=== PATIENT | female | born 1950 | race Caucasian/White ===

== ENCOUNTER 2020-03-19 09:15 | Outpatient (CLI) | payer MEDICARE, SELFPAY ==
--- NOTE | 2020-03-19 | ECHO_ITS ---
Patient Info Name: Chrissy Jones Age: 69 years : 1950 Gender: Female Ht: 63 in Wt: 230 lbs BSA: 2.21 m2 HR: 78 bpm BP: 207 / 86 mmHg Heart Rhythm: Sinus Rhythm Technical Quality: Good Exam Date: 03/19/2020 9:52 AM Exam Location: [facility] Pul[facility] Patient Status: Outpatient Admit Date: 03/19/2020 Staff Ordering Physician: LeninTor MD Senior Analyst Developer: Marlene Lainez RDCS Attending Provider: ZackTor MD Exam Type: CA echo doppler color flow Study Info Indications - heaven Complete two-dimensional, color flow and Doppler transthoracic echocardiogram is performed. Summary 1. Complete two-dimensional, color flow and Doppler transthoracic echocardiogram is performed. 2. Left ventricular chamber size, and systolic are normal with no regional wall motion abnormalities with an estimated ejection fraction of 65-70%. Borderline LVH. Grade 2 diastolic dysfunction is present. 3. Left atrial chamber dimension is mildly enlarged. 4. The mitral valve has calcified annulus, with trace mitral regurgitation. 5. Normal estimated pulmonary pressure. 6. Normal sinus rhythm. Left Ventricle Left ventricular chamber dimension is normal. Left ventricular systolic function is normal, estimated at 65-70%. There is no increased left ventricular wall thickness. Left ventricular septal wall motion is normal. The left ventricular diastolic function is grade II diastolic dysfunction. Left ventricular chamber size, and systolic are normal with no regional wall motion abnormalities with an estimated ejection fraction of 65-70%. Borderline LVH. Grade 2 diastolic dysfunction is present. Right Ventricle Right ventricular chamber dimension is normal. Right ventricular systolic function is normal. Left Atria Left atrial chamber dimension is mildly enlarged. Right Atria Right atrial chamber dimension is normal. Aortic Valve The aortic valve is trileaflet. There is no aortic valve sclerosis. There is no aortic valve stenosis. There is no aortic valve regurgitation. Pulmonic Valve The pulmonic valve is normal. There is no pulmonic valve stenosis. There is trace pulmonic regurgitation. Mitral Valve The mitral valve has calcified annulus, with trace mitral regurgitation. There is no mitral valve stenosis. There is trace mitral valve regurgitation. Tricuspid Valve The tricuspid valve leaflets are normal. There is no significant tricuspid valve stenosis. There is trace tricuspid valve regurgitation. No pulmonary hypertension, estimated pulmonary arterial systolic pressure is 32 mmHg. Pericardium/Pleural The pericardium appears normal. There is no pericardial effusion. Inferior Vena Cava Normal inferior vena cava with >50% collapse upon inspiration consistent with Empty right atrial pressure, 10 mmHg. Aorta The aortic root size at the sinus of Valsalva is normal. The prox ascending aorta size is normal. Left Ventricular Outflow Tract Name Value Normal LVOT 2D LVOT Diameter 2.0 cm LVOT Doppler LVOT Peak Gradient 4 mmHg LVOT Mean Gradient
== END 2020-03-19 09:16 | disposition home or self-care (01) ==
PROVIDERS: PCP Internal Medicine; Visit Provider Internal Medicine
DX: R60.0 Localized edema (principal); I34.0 Nonrheumatic mitral (valve) insufficiency
CPT/HCPCS: 93306

== ENCOUNTER → 2020-10-27 00:11 | Outpatient (CLI) | payer MEDICARE, SELFPAY ==
[2020-10-27 19:28] LABS: SARS-CoV-2 RNA PCR Negative
== END ==
PROVIDERS: PCP Internal Medicine; Visit Provider Internal Medicine Gastroenterology
DX: Z01.812 Encounter for preprocedural laboratory examination (principal); Z20.822 Contact with and (suspected) exposure to COVID-19
CPT/HCPCS: C9803; U0003; U0005

== ENCOUNTER 2020-10-30 01:26 | Day surgery (SDC) | payer MEDICARE, SELFPAY ==
[2020-10-20 13:48] VITALS: BMI 39.0
[2020-10-30 07:44] VITALS: BP 173/61; PULSE 74; RESP 18; TEMP 36.8; O2SAT 97; BMI 39.6
[2020-10-30] MEDS: SODIUM CHLORIDE 0.9% IV 500 ML 10 ML IV CONT (07:55)
[2020-10-30 07:58] LABS: Glucose Point of Care 272 (65-105)
--- NOTE | 2020-10-30 08:16 | WPDGICN ---
GI Consult Note Consult date/time: 10/30/20 08:16 HPI: Reason for visit is colonoscopy. This very pleasant lady sitting consultation request the primary physician. Impression: Screening and surveillance colonoscopy. The patient has a history of adenomatous colon polyps. HTN. HLD. DM. Obesity. Breast cancer. Status post mastectomy. Recommendation: Colonoscopy. History: This very pleasant lady is negative GI review systems. She has a history of colon polyps. She is here for colonoscopy. Physical examination: General: very pleasant patient in no acute distress. HEENT: Head was normocephalic sclerae is clear mouth without masses neck was supple. Heart: Rate rhythm regular without S3 or S4. Lungs: CTA. Abdomen: Soft with no guarding or rigidity. Bowel sounds were active. Neurologic: Cranial nerves 2 through 12 intact. No focal defects. No clonus. Musculoskeletal system: Revealed no joint tenderness or swelling no muscle atrophy. Extremities: Reveal no significant edema. Skin: Warm and dry with normal turgor. Mental status: intact. Patient is alert and oriented. Review of Systems Review of Systems: All systems reviewed & are unremarkable except as noted in HPI and below PMFSH Family History Family History (System 08/20/19 @ 14:01 by Slime Francis) Mother Hypertension Family history of diabetes mellitus in first degree relative Father Family history of coronary artery disease Patient's father is Social History Social History (System 08/20/19 @ 14:01 by Slime Francis) Smoking status: Never smoker Alcohol intake: current Substance use: never Substance use type: does not use Living arrangements: with family Gender identity (if verbalized by the patient): Female Sexual Orientation (if Verbalized by the Patient): Straight or Heterosexual Spiritual care concerns: No Meds Home Medications and Allergies Home Medications Medication Instructions Recorded Confirmed Type aspirin [Aspir-81] 81 mg PO DAILY 10/20/20 10/20/20 History atenolol [Tenormin] 25 mg PO DAILY 10/20/20 10/30/20 History atorvastatin 80 mg PO DAILY 10/20/20 10/20/20 History glimepiride [Amaryl] 2 mg PO BID 10/20/20 10/20/20 History insulin aspart U-100 [Novolog 16 unit SUBCUT TID 10/20/20 10/20/20 History Flexpen U-100 Insulin] insulin degludec [Tresiba 66 unit SUBCUT DAILY 10/20/20 10/20/20 History FlexTouch U-200] lisinopril 20 mg PO DAILY 10/20/20 10/20/20 History vxxmsiuqqcei-bjzkzhlv-lhswho 1 tablet PO DAILY 10/20/20 10/20/20 History [Centrum Silver] omega-3 fatty acids [Fish Oil] 1,000 mg PO DAILY 10/20/20 10/20/20 History Allergies Allergy/AdvReac Type Severity Reaction Status Date / Time clarithromycin Allergy Unknown Unknown Verified 10/30/20 07:43 Vital Signs Vital Signs - 24 hr 10/30/20 07:44 Temperature 36.8 C Pulse Rate 74 Respiratory Rate 18 Blood Pressure 173/61 H Pulse Oximetry 97
--- NOTE | 2020-10-30 08:46 | WPDANESEPPF ---
Anes - Initial Pre Proc Eval Procedure: Operation Date: 10/30/20 09:00 Proposed Procedures p Screening Colonoscopy - Hemant Macias DO Date/Time: 10/30/20 08:46 Surgeon: Hemant Macias DO Pre Op Diagnosis: neoplasm screening Patient Data Age: 69 Gender: F Height: 5 ft 3 in Weight: 101.5 kg Last Vital Signs Temp 98.3 F 10/30/20 07:44 Pulse 74 10/30/20 07:44 Resp 18 10/30/20 07:44 BP 173/61 H 10/30/20 07:44 Pulse Ox 97 10/30/20 07:44 Allergies Allergy/AdvReac Type Severity Reaction Status Date / Time clarithromycin Allergy Unknown Unknown Verified 10/30/20 07:43 Home Medications Medication Instructions Recorded Confirmed Type aspirin [Aspir-81] 81 mg PO DAILY 10/20/20 10/20/20 History atenolol [Tenormin] 25 mg PO DAILY 10/20/20 10/30/20 History atorvastatin 80 mg PO DAILY 10/20/20 10/20/20 History glimepiride [Amaryl] 2 mg PO BID 10/20/20 10/20/20 History insulin aspart U-100 [Novolog 16 unit SUBCUT TID 10/20/20 10/20/20 History Flexpen U-100 Insulin] insulin degludec [Tresiba 66 unit SUBCUT DAILY 10/20/20 10/20/20 History FlexTouch U-200] lisinopril 20 mg PO DAILY 10/20/20 10/20/20 History yrcvodlsoieu-qqpeitqd-dkixwx 1 tablet PO DAILY 10/20/20 10/20/20 History [Centrum Silver] omega-3 fatty acids [Fish Oil] 1,000 mg PO DAILY 10/20/20 10/20/20 History Laboratory Tests 10/30/20 07:50 POC Capillary Glucose 272 mg/dl H mg/dl (65-105) Patient hx anesthesia problems: none Family hx anesthesia problems: none PMFSH Past Medical History Medical History (Updated 10/30/20 @ 08:45 by Ramses Montgomery MD) COPD (chronic obstructive pulmonary disease) Diabetes Hypertension Family History Family History (System 08/20/19 @ 14:01 by Slime Francis) Mother Hypertension Family history of diabetes mellitus in first degree relative Father Family history of coronary artery disease Patient's father is Social History Social History (System 08/20/19 @ 14:01 by Slime Francis) Smoking status: Never smoker Alcohol intake: current Substance use: never Substance use type: does not use Living arrangements: with family Gender identity (if verbalized by the patient): Female Sexual Orientation (if Verbalized by the Patient): Straight or Heterosexual Spiritual care concerns: No Anes - Eval Final PreProcedure Day of Procedure 10/30/20 08:46 Patient weight: morbidly obese Heart: regular rate and rhythm Lungs: clear to auscultation Airway: Mallampati scale class III Neurological: alert and oriented Last oral intake: >/= 8 hours ASA classification: III Emergent: no Anesthetic plan: proceed Anesthesia type and monitoring: general GIVS and standard monitoring Informed Consent: The patient's anesthetic plan and its attendant risks and benefits were discussed with the patient/family/POA. Questions were solicited and answers provided to the satisfaction of the patient/family/POA.
[2020-10-30 09:34] VITALS: BP 103/48; PULSE 54; RESP 16; O2SAT 95
[2020-10-30 09:44] VITALS: BP 105/47; PULSE 53; RESP 12; O2SAT 95
[2020-10-30 09:54] VITALS: BP 144/58; PULSE 57; RESP 21; O2SAT 97
[2020-10-30 10:10] LABS: Glucose Point of Care 245 (65-105)
== END 2020-10-30 10:20 | disposition home or self-care (01) ==
PROVIDERS: PCP Internal Medicine; Visit Provider Internal Medicine Gastroenterology
PROC: 0DJD8ZZ Inspection of Lower Intestinal Tract, Via Natural or Artificial Opening Endoscopic (ICD-10-PCS; CPT 45378; principal; 2020-10-30 09:00)
DX: Z12.11 Encounter for screening for malignant neoplasm of colon (principal); D12.4 Benign neoplasm of descending colon; I10 Essential (primary) hypertension; E78.5 Hyperlipidemia, unspecified; E11.9 Type 2 diabetes mellitus without complications; E66.9 Obesity, unspecified; Z85.3 Personal history of malignant neoplasm of breast; Z90.10 Acquired absence of unspecified breast and nipple; Z79.4 Long term (current) use of insulin; Z79.82 Long term (current) use of aspirin
CPT/HCPCS: 45385; 82948; 88305; C9803; J2704; J7040; U0003; U0005

== ENCOUNTER 2024-01-04 07:39 | Outpatient (CLI) | payer MEDICARE, SELFPAY ==
--- NOTE | ~2024-01-04 | MR_ITS ---
MRI of the brain Clinical History: Tremor Technique: Axial and sagittal T1-weighted images were acquired. These were followed by axial T2-weigh fabi, diffusion weighted, gradient, and FLAIR images. Findings: There is no abnormal signal in the brain parenchyma. No acute infarct, intracranial hemorrh age, or mass lesion. Ventricles and subarachnoid spaces are unremarkable. Orbits are unremarkable. Paranasal sinuses and m astoid air cells are clear. Major intracranial flow voids are intact. Sagittal midline structures are intact. IMPRESSION: No significant abnormality identified. Reviewed, dictated and finalized at location M.
== END 2024-01-04 07:40 | disposition home or self-care (01) ==
PROVIDERS: PCP Family Medicine; Visit Provider Physician Assistant Medical
DX: R25.1 Tremor, unspecified (principal)
CPT/HCPCS: 70551